=== PATIENT | female | born 1970 | race Caucasian/White ===

== ENCOUNTER 2019-12-27 14:37 | Emergency (ER) | payer BC ==
--- NOTE | 2019-12-27 14:59 | EDM.PDOC ---
ED HPI GENERAL MEDICAL PROBLEM - General Chief Complaint: General Stated Complaint: STUTTERING WORDS/ POSSIBLE FROM SURGERY ON WEDNESDAY Time Seen by Provider: 12/27/19 14:57 - History of Present Illness INITIAL COMMENTS - FREE TEXT/NARRATIVE: 49-year-old female presents the emergency room with stuttering. This started yesterday. On Wednesday the patient had a 3 level cervical fusion at C4-5 C5-6 and C 6-7. She is wondering if there is a relationship. Patient denies any fevers or chills she did have a little bit of a hoarse voice following the surgery which is to be expected. Patient denies any other problems with this most unfortunate development. Patient is a little anxious. Neck Pain Score (Numeric/FACES): 10 - Related Data Allergies Allergy/AdvReac Type Severity Reaction Status Date / Time No Known Allergies Allergy Verified 12/27/19 15:01 Home Meds: Home Meds ALPRAZolam [Alprazolam] 0.5 mg PO DAILY 10/19/14 [History] Losartan [Cozaar] 50 mg PO DAILY 10/19/14 [History] Venlafaxine HCl [Venlafaxine ER] 75 mg PO DAILY 10/19/14 [History] Zolpidem [Ambien] 10 mg PO BEDTIME PRN 10/19/14 [History] traZODone HCl [Trazodone HCl] 50 mg PO BEDTIME PRN 10/19/14 [History] Acetaminophen/HYDROcodone [Horatio 325-5 MG] 1 tab PO Q4H PRN #40 tablet 10/22/14 [Rx] Aspirin 325 mg PO DAILY #30 tablet 10/22/14 [Rx] Past Medical History Other MARKETING SUPPORT ASSISTANT History: HX OF X4, 1 MISSED VETO, 3 VAGINAL BIRTHS Other Musculoskeletal History: RIGHT KNEE PAIN Other Dermatologic History: BREAST AUGMENTATION - Past Surgical History Other HEENT Surgeries/Procedures: HX OF SINUS SURGERY AND OTOPLASTY ED ROS GENERAL - Review of Systems Review Of Systems: See Below Constitutional: Reports: No Symptoms HEENT: Reports: Other (This change and stuttering) Respiratory: Reports: No Symptoms Cardiovascular: Reports: No Symptoms Endocrine: Reports: No Symptoms GI/Abdominal: Reports: No Symptoms : Reports: No Symptoms Musculoskeletal: Reports: Neck Pain (Chronic) Skin: Reports: No Symptoms Neurological: Reports: No Symptoms Psychiatric: Reports: Anxiety. Denies: No Symptoms Hematologic/Lymphatic: Reports: No Symptoms Immunologic: Reports: No Symptoms ED EXAM, GENERAL - Physical Exam Exam: See Below Exam Limited By: No Limitations General Appearance: Alert, Anxious Eye Exam: Bilateral Eye: Normal Inspection Ears: Normal External Exam, Normal Canal, Hearing Grossly Normal, Normal TMs Nose: Normal Inspection, Normal Mucosa, No Blood Throat/Mouth: Normal Inspection, Normal Lips, Normal Gums, Normal Oropharynx, No Airway Compromise Head: Atraumatic, Normocephalic Neck: Other (Anterior approach for neck surgery incision looks good) Respiratory/Chest: No Respiratory Distress, Lungs Clear, Normal Breath Sounds Cardiovascular: Regular Rate, Rhythm, No Edema, No Murmur GI/Abdominal: Normal Bowel Sounds, Soft, Non-Tender Back Exam: Normal Inspection. No: CVA Tenderness (L), CVA Tenderness (R) Extremities: Normal Inspection, Normal Range of Motion Course - Vital Signs Last Recorded V/S: Last Vital Signs Temp 35.9 C L 12/27/19 14:57 Pulse 90 12/27/19 14:57 Resp 18 12/27/19 14:57 BP 162/95 H 12/27/19 14:57 Pulse Ox 98 12/27/19 14:57 - Orders/Labs/Meds Labs: Laboratory Tests 12/27/19 12/27/19 Range/Units 15:40 15:40 WBC 8.26 (3.98-10.04) K/mm3 RBC 3.92 L (3.98-5.22) M/mm3 Hgb 12.8 D (11.2-15.7) gm/dl Hct 39.0 (34.1-44.9) % MCV 99.5 H (79.4-94.8) fl MCH 32.7 H (25.6-32.2) pg MCHC 32.8 (32.2-35.5) g/dl RDW Std Deviation 48.4 H (36.4-46.3) fL Plt Count 270 D (182-369) K/mm3 MPV 8.5 L (9.4-12.3) fl Neut % (Auto) 78.0 H (34.0-71.1) % Lymph % (Auto) 16.2 L (19.3-51.7) % Kidder % (Auto) 4.5 L (4.7-12.5) % Eos % (Auto) 1.0 (0.7-5.8) Baso % (Auto) 0.1 (0.1-1.2) % Neut # (Auto) 6.44 H (1.56-6.13) K/mm3 Lymph # (Auto) 1.34 (1.18-3.74) K/mm3 Kidder # (Auto) 0.37 H (0.24-0.36) K/mm3 Eos # (Auto) 0.08 (0.04-0.36) K/mm3 Baso # (Auto) 0.01 (0.01-0.08) K/mm3 Sodium 137 (136-145) mEq/L Potassium 3.7 (3.5-5.1) mEq/L Chloride 100 (98-107) mEq/L Carbon Dioxide 29 (21-32) mEq/L Anion Gap 11.7 (5-15) BUN 7 (7-18) mg/dL Creatinine 0.8 (0.55-1.02) mg/dL Est Cr Clr Drug Dosing 75.07 mL/min Estimated GFR (MDRD) > 60 (>60) mL/min BUN/Creatinine Ratio 8.8 L (14-18) Glucose 105 (74-106) mg/dL Calcium 9.6 (8.5-10.1) mg/dL Magnesium 1.8 (1.8-2.4) mg/dl Total Bilirubin 0.3 (0.2-1.0) mg/dL AST 18 (15-37) U/L ALT 14 (14-59) U/L Alkaline Phosphatase 53 (46-116) U/L Total Protein 6.8 (6.4-8.2) g/dl Albumin 3.4 (3.4-5.0) g/dl Globulin 3.4 gm/dL Albumin/Globulin Ratio 1.0 (1-2) Meds: Medications Discontinued Medications Generic Name Dose Route Start Last Admin Trade Name Freq PRN Reason Stop Dose Admin Lorazepam 1 mg 12/27/19 15:31 12/27/19 15:37 Ativan IVPUSH 12/27/19 15:32 1 mg ONETIME ONE Administration - Re-Assessments/Exams Free Text/Narrative Re-Assessment/Exam: 12/27/19 16:02 Stuttering is a central response not a peripheral response. I did discuss the patient's case with Dr. Moore, the patient's surgeon, who would like the patient to have a head CT and make sure electrolytes are okay which is reasonable. If this is unrevealing we could schedule an outpatient MRI 12/27/19 16:[address] is unremarkable labs as stated above unremarkable. We will get the patient scheduled for an outpatient MRI with results to Dr. Moore and Dr. rAce and interestingly patient speech seems to have improved after little bit of Ativan. Departure - Departure Time of Disposition: 16:36 Disposition: Home, Self-Care 01 Clinical Impression: Stuttering - Discharge Information Referrals: Elio Tijreina MD [Primary Care Provider] - Forms: ED Department Discharge Additional Instructions: Follow-up with your regular doctor later this week for recheck. Follow-up with your surgeon as scheduled. Return to the emergency room with any emergent conditions. You should be contacted by our x-ray department to get your brain MRI scheduled. Follow-up as directed with this. Sepsis Event Note (ED) - Focused Exam Vital Signs: Vital Signs Temp Pulse Resp BP Pulse Ox 12/27/19 14:57 35.9 C L 90 18 162/95 H 98
[2019-12-27 15:01] VITALS: BP 162/95; PULSE 90
[2019-12-27] MEDS ORDERED: LORazepam 2 MG/ML SDV IVPUSH ONE (15:31)
--- NOTE | 2019-12-27 16:02 | CT ---
Head CT Technique: Multiple axial sections through the brain were obtained. Intravenous contrast was not utilized. Comparison: No prior intracranial imaging is available. Findings: Ventricles along with basal cisterns and sulci over the convexities are within normal limits for the patient's age. No abnormal parenchymal densities are seen. No evidence of intracranial hemorrhage. No midline shift or mass effect is seen. Bone window settings were reviewed. No acute calvarial finding is appreciated. Visualized mastoid sinuses and visualized paranasal sinuses show nothing acute. Impression: 1. Nothing acute is appreciated on noncontrast head CT exam. Diagnostic code #1 Study was dictated in MDT
[2019-12-27] MEDS ORDERED: Acetaminophen 325 MG Tab PO ONE (17:02)
== END 2019-12-27 17:08 | disposition home or self-care (01) ==
LOC: JD.ED 14:37
DX: F80.81 Childhood onset fluency disorder (principal); Z79.899 Other long term (current) drug therapy; Z79.82 Long term (current) use of aspirin
CPT/HCPCS: 36415; 70450; 80053; 83735; 85025; 96374; 99285; J2060

== ENCOUNTER 2022-07-30 06:53 | Day surgery (SDC) | payer BC ==
[~2022-07-30 06:53] MED LIST: Lactated Ringers 1,000 ML IV SCH; Lidocaine 1%/Sod Bicarbonate in NS 8.4% 1 ML Syringe IDERM PRN; Sodium Chloride 0.9% 10 ML Syringe FLUSH PRN; Sodium Chloride 0.9% 10 ML Syringe FLUSH SCH
[2022-07-30] MEDS ORDERED: Propofol 200 MG/20 ML SDV ONE (07:30)
[2022-07-30] MEDS ORDERED: fentaNYL 100 MCG/2 ML SDV ONE (07:30)
[2022-07-30] MEDS ORDERED: Lidocaine 1% 4 ML ONE (07:30)
[2022-07-30] MEDS ORDERED: Ketamine 500 mg/10 ML MDV ONE (07:48)
[2022-07-30 09:31] VITALS: BP 114/82; PULSE 73
== END 2022-07-30 09:20 | disposition home or self-care (01) ==
LOC: JD.SDS 06:53
PROVIDERS: ATTEND Specialist
DX: K20.90 Esophagitis, unspecified without bleeding (principal); K44.9 Diaphragmatic hernia without obstruction or gangrene; K31.A0 Gastric intestinal metaplasia, unspecified; M19.90 Unspecified osteoarthritis, unspecified site; F41.8 Other specified anxiety disorders; I10 Essential (primary) hypertension; G57.90 Unspecified mononeuropathy of unspecified lower limb; M06.09 Rheumatoid arthritis without rheumatoid factor, multiple sites; G62.9 Polyneuropathy, unspecified; N39.0 Urinary tract infection, site not specified; F17.210 Nicotine dependence, cigarettes, uncomplicated; G89.29 Other chronic pain; M54.50 Low back pain, unspecified; J45.909 Unspecified asthma, uncomplicated; Z79.899 Other long term (current) drug therapy; Z98.890 Other specified postprocedural states; Z98.1 Arthrodesis status
CPT/HCPCS: 43239; 45380; J2704; J3010; J3490; J7120; 00813

== ENCOUNTER 2025-02-24 19:59 | Inpatient (IN) | payer BC ==
[2025-02-24 20:46] LABS: A/G RATIO 0.8 (1-2); ALANINE AMINOTRANSFERASE,ALT 16.0 U/L (14-59); ASPARTATE AMNIOTRANSFERASE,AST 26.0 U/L (15-37); BILIRUBIN TOTAL 0.3 mg/dL (0.2-1.0); BLOOD UREA NITROGEN,BUN 7.0 mg/dL (7-18); CARBON DIOXIDE,CO2 25.0 mEq/L (21-32); CHLORIDE,CL 103.0 mEq/L (98-107); CREATININE 1.0 mg/dL (0.55-1.02); EST CRCL DRUG DOSING (CG) 56.83 mL/min; ESTIMATED GFR 68.0 mL/min (>60); GLUCOSE RANDOM 101.0 mg/dL (70-99); POTASSIUM,K 3.8 mEq/L (3.5-5.1); PROTEIN TOTAL,TP 7.6 g/dl (6.4-8.2); SODIUM,NA 140.0 mEq/L (136-145)
[2025-02-24] MEDS: methylPREDNISolone Sodium Succinate 125 MG/2 ML SDV IVPUSH ONE (20:48)
[2025-02-24 20:49] LABS: LACTIC ACID 1.9 mmol/L (0.4-2.0)
[2025-02-24] MEDS ORDERED: Sodium Chloride 0.9% 10 ML Syringe FLUSH PRN (21:09)
[2025-02-24 21:15] LABS: BASOPHILS ABSOLUTE AUTO 0.0 K/mm3 (0.0-0.2); BASOPHILS PERCENT AUTO 0.2 % (0.0-1.0); EOSINOPHILS ABSOLUTE AUTO 0.2 K/mm3 (0.0-0.4); EOSINOPHILS PERCENT AUTO 1.5 % (0.0-6.0); IMMATURE GRAN ABSOLUTE AUTO 0.05 K/mm3 (0.00-0.05); IMMATURE GRAN PERCENT AUTO 0.3 % (0.0-0.4); LYMPHOCYTES ABSOLUTE AUTO 2.3 K/mm3 (1.0-4.8); LYMPHOCYTES PERCENT AUTO 16.2 % (24.0-44.0); MEAN PLATELET VOLUME 8.1 fl (9.4-12.3); MONOCYTES ABSOLUTE AUTO 0.5 K/mm3 (0.0-0.8); MONOCYTES PERCENT AUTO 3.8 % (0.0-8.0); NEUTROPHILS ABSOLUTE AUTO 11.2 K/mm3 (1.8-7.7); NEUTROPHILS PERCENT AUTO 78.0 % (41.0-71.0); NRBC ABSOLUTE 0.00 (0.00-0.02); NRBC PERCENT 0.0 % (0.0-0.2); PLATELET COUNT,PLT 370 K/mm3 (150-400); RED BLOOD CELL COUNT 3.95 M/mm3 (4.10-5.30); WHITE BLOOD CELL COUNT,WBC 14.35 K/mm3 (3.9-11.3)
[2025-02-24 21:38] LABS: APPEARANCE,URINE SLT CLOUDY (Clear); GLUCOSE,URINE NEGATIVE (Negative); OCCULT BLOOD,URINE 2+ (Negative)
[2025-02-24 21:48] LABS: SQUAMOUS EPITHELIAL CELLS,UR 0-5 /hpf (0-5)
[2025-02-24] MEDS: Iopamidol 755 Mg/ML 100 ML Bottle IVPUSH ONE (22:19)
[2025-02-24] MEDS: Sodium Chloride 0.9% 10 ML Syringe FLUSH PRN (22:19)
[2025-02-24] MEDS: cefTRIAXone 2 GM in Water For Injection, Sterile 20 ML IVPUSH ONE (23:03)
[2025-02-24] MEDS ORDERED: Acetaminophen/oxyCODONE 325-5 MG Tab PO PRN (23:20)
[2025-02-24] MEDS ORDERED: Ondansetron 4 MG/2 ML SDV IV PRN (23:20)
[2025-02-25 05:54] LABS: BASOPHILS ABSOLUTE AUTO 0.0 K/mm3 (0.0-0.2); BASOPHILS PERCENT AUTO 0.1 % (0.0-1.0); EOSINOPHILS ABSOLUTE AUTO 0.0 K/mm3 (0.0-0.4); EOSINOPHILS PERCENT AUTO 0.0 % (0.0-6.0); IMMATURE GRAN ABSOLUTE AUTO 0.05 K/mm3 (0.00-0.05); IMMATURE GRAN PERCENT AUTO 0.4 % (0.0-0.4); LYMPHOCYTES ABSOLUTE AUTO 0.9 K/mm3 (1.0-4.8); LYMPHOCYTES PERCENT AUTO 6.8 % (24.0-44.0); MEAN PLATELET VOLUME 8.2 fl (9.4-12.3); MONOCYTES ABSOLUTE AUTO 0.1 K/mm3 (0.0-0.8); MONOCYTES PERCENT AUTO 1.0 % (0.0-8.0); NEUTROPHILS ABSOLUTE AUTO 12.1 K/mm3 (1.8-7.7); NEUTROPHILS PERCENT AUTO 91.7 % (41.0-71.0); NRBC ABSOLUTE 0.00 (0.00-0.02); NRBC PERCENT 0.0 % (0.0-0.2); PLATELET COUNT,PLT 334 K/mm3 (150-400); RED BLOOD CELL COUNT 3.92 M/mm3 (4.10-5.30); WHITE BLOOD CELL COUNT,WBC 13.21 K/mm3 (3.9-11.3)
[2025-02-25 06:17] LABS: A/G RATIO 0.7 (1-2); ALANINE AMINOTRANSFERASE,ALT 14.0 U/L (14-59); ASPARTATE AMNIOTRANSFERASE,AST 22.0 U/L (15-37); BILIRUBIN TOTAL 0.3 mg/dL (0.2-1.0); BLOOD UREA NITROGEN,BUN 8.0 mg/dL (7-18); CARBON DIOXIDE,CO2 28.0 mEq/L (21-32); CHLORIDE,CL 102.0 mEq/L (98-107); CREATININE 0.7 mg/dL (0.55-1.02); EST CRCL DRUG DOSING (CG) 81.18 mL/min; ESTIMATED GFR 104.0 mL/min (>60); GLUCOSE RANDOM 133.0 mg/dL (70-99); POTASSIUM,K 4.1 mEq/L (3.5-5.1); PROTEIN TOTAL,TP 7.2 g/dl (6.4-8.2); SODIUM,NA 140.0 mEq/L (136-145)
[2025-02-25] MEDS: guaiFENesin/Dextromethorphan 100-10 MG/5 ML Soln 5 ML Cup PO PRN (14:06)
[2025-02-25] MEDS: cefTRIAXone 1 GM in Water For Injection, Sterile 10 ML IVPUSH SCH (22:36)
[2025-02-26] MEDS: Ondansetron 4 MG Tab.DIS PO PRN (02:01)
[2025-02-26 05:36] LABS: BASOPHILS ABSOLUTE AUTO 0.0 K/mm3 (0.0-0.2); BASOPHILS PERCENT AUTO 0.3 % (0.0-1.0); EOSINOPHILS ABSOLUTE AUTO 0.1 K/mm3 (0.0-0.4); EOSINOPHILS PERCENT AUTO 1.4 % (0.0-6.0); IMMATURE GRAN ABSOLUTE AUTO 0.02 K/mm3 (0.00-0.05); IMMATURE GRAN PERCENT AUTO 0.3 % (0.0-0.4); LYMPHOCYTES ABSOLUTE AUTO 1.4 K/mm3 (1.0-4.8); LYMPHOCYTES PERCENT AUTO 20.2 % (24.0-44.0); MEAN PLATELET VOLUME 8.2 fl (9.4-12.3); MONOCYTES ABSOLUTE AUTO 0.4 K/mm3 (0.0-0.8); MONOCYTES PERCENT AUTO 6.2 % (0.0-8.0); NEUTROPHILS ABSOLUTE AUTO 5.1 K/mm3 (1.8-7.7); NEUTROPHILS PERCENT AUTO 71.6 % (41.0-71.0); NRBC ABSOLUTE 0.00 (0.00-0.02); NRBC PERCENT 0.0 % (0.0-0.2); PLATELET COUNT,PLT 345 K/mm3 (150-400); RED BLOOD CELL COUNT 3.82 M/mm3 (4.10-5.30); WHITE BLOOD CELL COUNT,WBC 7.14 K/mm3 (3.9-11.3)
[2025-02-26 05:48] LABS: BLOOD UREA NITROGEN,BUN 8.0 mg/dL (7-18); CARBON DIOXIDE,CO2 27.0 mEq/L (21-32); CHLORIDE,CL 104.0 mEq/L (98-107); CREATININE 0.8 mg/dL (0.55-1.02); EST CRCL DRUG DOSING (CG) 71.03 mL/min; ESTIMATED GFR 89.0 mL/min (>60); GLUCOSE RANDOM 90.0 mg/dL (70-99); POTASSIUM,K 3.5 mEq/L (3.5-5.1); SODIUM,NA 141.0 mEq/L (136-145)
[2025-02-26] MEDS: Bismuth Subsalicylate 262 MG/15 ML Susp 236 ML Bottle PO ONE (15:38)
[2025-02-26] MEDS: Non-Formulary Medication 1 Each (Gabapentin 800 MG Tablet) PO SCH (19:42)
[2025-02-27 06:21] VITALS: PULSE 112
[2025-02-27 09:16] VITALS: BP 121/93
== END 2025-02-27 10:06 | disposition home or self-care (01) | DRG 720 ==
LOC: JD.ED 19:59 → JD.MS 23:20
PROVIDERS: ADMIT Family Medicine; ATTEND Family Medicine
DX: A41.9 Sepsis, unspecified organism (principal); J18.9 Pneumonia, unspecified organism; J20.9 Acute bronchitis, unspecified; J96.01 Acute respiratory failure with hypoxia; J30.9 Allergic rhinitis, unspecified; I10 Essential (primary) hypertension; G62.9 Polyneuropathy, unspecified; B96.20 Unspecified Escherichia coli [E. coli] as the cause of diseases classified elsewhere; F41.9 Anxiety disorder, unspecified; N39.0 Urinary tract infection, site not specified; F17.200 Nicotine dependence, unspecified, uncomplicated; F32.A Depression, unspecified; Z96.659 Presence of unspecified artificial knee joint; Z98.890 Other specified postprocedural states; Z90.710 Acquired absence of both cervix and uterus; Z98.51 Tubal ligation status; Z79.899 Other long term (current) drug therapy
CPT/HCPCS: 36415; 71045; 71045-26; 71275; 71275-26; 80048; 80053; 81001; 83605; 85025; 86140; 87040; 87070; 87086; 87088; 87186; 87205; 87428-QW; 94640; 94667; 94668; 94760; 94761; 96361; 96374; 96375; 99285; 99285-25; A4216; A9270-GY; J0456; J0696; J1650; J2919; J7030; J7050; Q9967